=== PATIENT | male | born 1980 | race Caucasian/White ===

== ENCOUNTER → 2024-09-26 15:41 | Outpatient (REF) | payer OTHER, SELFPAY | LOC: RAD 15:41 | PROVIDERS: ATTENDING PHYSICIAN Family Medicine Sports Medicine | DX: K57.92 Diverticulitis of intestine, part unspecified, without perforation or abscess without bleeding (principal) | CPT/HCPCS: 74177; Q9967 ==

== ENCOUNTER 2024-09-27 18:10 | Emergency (ER) | payer OTHER, SELFPAY ==
[2024-09-27 18:26] VITALS: BP 120/84
[2024-09-27 18:45] LABS: % Basophils 0.5 % (0-2); % Eosinophils 1.2 % (0-6); % Immature Granulocytes 0.4 % (0-0.5); % Lymphocytes 22.4 % (20.5-51.1); % Monocytes 6.6 % (1.7-9.3); % Neutrophils 68.9 % (42.2-75.2); Absolute Eosinophils 0.1 10^3/uL (0-0.7); Absolute Lymphocytes 1.7 10^3/uL (1.2-3.4); Absolute Monocytes 0.5 10^3/uL (0.1-0.6); Absolute Neutrophils 5.3 10^3/uL (1.4-6.5); Hematocrit 46.3 % (39.0-52.0); Hemoglobin 16.8 g/dL (13.0-18.0); Mean Corp Hgb Conc. 36.3 g/dL (33.0-37.0); Mean Corpuscular Volume 88.2 fL (80.0-94.0); Mean Platelet Volume 9.5 fL (7.4-10.4); Nucleated Red Blood Cells % 0 % (-); Platelet Count 216 10^3/uL (130-400); Red Blood Cell Count 5.25 10^6/uL (4.70-6.10); Red Cell Dist. Width 12.3 % (11.5-14.5); White Blood Cell Count 7.7 10^3/uL (4.8-10.8)
[2024-09-27 19:01] LABS: ALT (SGPT) 168 U/L (0-50); AST (SGOT) 95 U/L (17-59); Albumin 4.6 g/dl (3.5-5.0); Alkaline Phosphatase 71 U/L (38-126); Blood Urea Nitrogen 14 mg/dl (9-20); Calcium 8.9 mg/dl (8.4-10.2); Carbon Dioxide 26 mmol/L (22-30); Chloride 104 mmol/L (98-107); Glucose 129 mg/dl (70-99); Potassium 4.1 mmol/L (3.5-5.1); Sodium 140 mmol/L (135-145); Total Bilirubin 0.7 mg/dl (0.2-1.3); Total Protein 6.7 g/dl (6.3-8.2); eGFR > 60.00
[2024-09-27 19:02] LABS: Lipase 190 U/L (23-300)
[2024-09-27 19:09] LABS: COVID-19 Antigen Negative (Negative)
--- NOTE | 2024-09-27 21:06 | ED.GENMED ---
History of Present Illness
General
Chief Complaint: Fever
Source: patient
Time Seen by Provider: 09/27/24 20:50
History of Present Illness
History of Present Illness:
44-year-old male presents to the emergency room complaining of pain in his right ear at the opening of the ear and radiating to his jaw. Patient noted his sense of smell seemed heightened and he had a metallic taste in his mouth as well. He was
not feeling well overall and took his temperature noting it to be 100.0. Patient is currently taking Levaquin and Flagyl for a suspected bout of diverticulitis. He developed loose stools and some abdominal pain couple days ago prompting his
primary care doctor to call in a prescription for Levaquin and Flagyl. He also ordered a CT scan which the patient actually had performed yesterday. The CT report showed no evidence of acute inflammatory process. His doctor however recommended he
complete the course of Levaquin Flagyl close clinically thought he might have diverticulitis. Today the patient thought he might be developing a ear infection or some other type of infection. In addition he was concerned he had a swollen lymph
node on the right side of his neck. Patient does occasionally get cold sores.
Past History
Past History
ED Past Medical History: Asthma
ED Past Surgical History: Orthopedic (Fracture nose repair) and Urological (Vasectomy)
Social History
Tobacco: Non-smoker
Alcohol: Occasional
Personal:
Living: with family
Phy Exam
Physical Exam
Physical Exam:
General: Awake, Alert, Oriented X3. No acute distress.
Vitals: unremarkable
Head: Atraumatic. Right cheek in the area of the temporomandibular joint is slightly sensitive to touch.
Eyes: Pupils equal, EOMI
Ear: TM appears normal, no evidence of otitis externa.
Throat: Airway intact, no exudates, no intraoral lesions noted
Neck: Trachea midline
Lungs: Clear and equal b/l
Heart: Regular rate, no murmurs
Abd: Soft, Nontender, No pulsatile mass
Neuro: Nonfocal
Skin: Warm, dry, no rash
Extremities: pulses equal b/l, no edema
Course
Orders/Labs/Results
Orders:
Orders
09/27/24 18:39
COVID-19 Antigen Urgent
Source: Nasal Swab
Complete Blood Count/With Diff Urgent
Comprehensive Metabolic Panel Urgent
Lipase Urgent
Influenza A+B Rapid Molecular Urgent
DANIKA Source: Nasal Swab
Specimen Description:
09/27/24 21:06
Valacyclovir HCl [Valtrex] 2,000 mg PO NOW STA
09/27/24 21:19
Acetaminophen [Tylenol] 650 mg PO NOW STA
Abnormal Lab Results
09/27/24
18:39
MCH 32.0 H pg
(27.0-31.0)
Glucose 129 H mg/dl
(70-99)
AST 95 H U/L
(17-59)
ALT 168 H U/L
(0-50)
09/27/24 18:39
09/27/24 18:39
Vital Signs
Initial and Last Documented VS:
Initial Vital Signs
Temp Pulse Resp BP Pulse Ox
98.7 F 95 18 120/84 95
09/27/24 18:26 09/27/24 18:26 09/27/24 18:26 09/27/24 18:26 09/27/24 18:26
Last Documented Vital Signs
Temp Pulse Resp BP Pulse Ox
98.7 F 95 18 120/84 95
09/27/24 18:26 09/27/24 18:26 09/27/24 18:26 09/27/24 18:26 09/27/24 18:26
MDM/Problems Addressed
Differential Diagnosis Includes:
Otitis externa, otitis media, serous otitis, herpes virus activation
MDM/Problems Addressed:
Patient presents with what is essentially right facial pain. He has no focal neurologic deficits. I do not appreciate any visible vesicular lesions. I suspect the patient is having an activation of herpes virus with some irritation of the nerve
root. We will treat with oral antivirals. Recommended treatment is 2 g today and another 2 g tomorrow afternoon. Follow-up primary care provider as scheduled.
Patient's labs here showed mild elevation of his LFTs. He did have a CT yesterday which showed hepatic steatosis which would explain mildly elevated LFTs. This can be followed up by his primary care provider.
*Radiology
Radiology exam reviewed: other (CT report from outpatient CT yesterday were reviewed.)
*Pulse Oximetry
Patient hypoxic: no
*Critical Care Note
Total Time (30-74mins, 75-104mins- exclusive of procedures): Not Applicable
ED Attending Note
-
Portions of this chart may have been created with voice recognition software.� Occasional wrong word or��sound alike� substitutions may have occurred due to the inherent limitations of voice recognition software.
Discharge Plan
Departure
Patient Disposition: Home (Routine Discharge)
Date of Disposition: 09/27/24
Time of Disposition: 21:17
Patient with high blood pressure during this ER visit?: No
Condition: Good
Discharge Problem:
Herpes gingivostomatitis
Instructions: Cold sores (oral herpes)
Prescriptions:
New
valacyclovir [Valtrex] 500 mg tablet
2,000 mg PO ONCE Qty: 4 0RF
No Action
acetaminophen 325 mg Tablet
650 mg PO Q6HPRN PRN (Reason: mild pain/ fever>100.5F) Qty: 0 0RF
levofloxacin 750 mg Tablet
750 mg PO DAILY Qty: 7 0RF
metronidazole 500 mg tablet
500 mg PO Q8H 7 Days Qty: 21 0RF
Referrals:
Rusty Patel DO [Family Provider] -
Interventions
Interventions:
*Risk Screen - Suicide Last Done: 09/27/24 18:30
*General Assessment Last Done: 09/27/24 18:30
*Neglect/Abuse Screening Last Done: 09/27/24 18:30
*ED- Fall Risk Assessment Last Done: 09/27/24 21:10
*ED COVID-19 Vaccine History Last Done: 09/27/24 18:30
*Nursing Disposition Last Done: 09/27/24 21:45
ED- Neurological Assessment Last Done: 09/27/24 21:10
ED-Skin Assessment Last Done: 09/27/24 21:10
Discharge Date and Time
Discharge Date/Time: 09/27/24 21:45
Print Language: MACEDONIAN
[2024-09-27] MEDS: TYLENOL 650 MG PO (21:34)
[2024-09-27] MEDS: VALTREX 2000 MG PO (21:34)
== END 2024-09-27 21:45 | disposition home or self-care (01) ==
LOC: EMR 18:10
PROVIDERS: Emergency Medicine; EMERGENCY PHYSICIAN Emergency Medicine; FAMILY PHYSICIAN Family Medicine Sports Medicine
DX: B00.2 Herpesviral gingivostomatitis and pharyngotonsillitis (principal); H92.01 Otalgia, right ear; R50.9 Fever, unspecified; R68.84 Jaw pain; Z11.52 Encounter for screening for COVID-19; K76.0 Fatty (change of) liver, not elsewhere classified; J45.909 Unspecified asthma, uncomplicated; Z88.1 Allergy status to other antibiotic agents; Z88.0 Allergy status to penicillin
CPT/HCPCS: 99283; 80053; 83690; 85025; 87502; 87811